=== PATIENT | female | born 1960 | race African-American/Black ===

== ENCOUNTER 2016-06-24 20:37 | Emergency (ER) | payer OTHER ==
--- NOTE | ~2016-06-24 | CR229 ---
[facility] A Service of [facility] RADIOLOGY TEXT RESULTS PATIENT: VILMA KAHN LOCATION: [facility] : 64 UNIT #: [id number] AGE: [address]: Gianni Garcia SEX: F ORDER DR: [id number] [facility] [address] [facility] [place], [place] [address] [id number] E MR#: [id number] Acc #: [id number] NAME: VILMA KAHN. : 1960 SEX: F STUDY DATE/TIME: 06/24/2016 18:56 UNIT: [facility] ROOM: STUDY DESCRIPTION: CR Shoulder Min 2 View Lt Attending Physician: Gianni Garcia Ordering Physician: Fredy Jin M.D. Primary Care Physician: Saw Martines M.D. MEDICAL IMAGING REPORT This report is preliminary unless electronic signature is present EXAM Left shoulder series dated 06/24/2016 COMPARISON None. HISTORY Pain radiating down the left arm for 2 months. Fell a year ago. FINDINGS 3 views of the left shoulder were obtained. Mild degenerative changes are noted in the left acromioclavicular joint. Glenohumeral joint is intact. No acute displaced fracture or dislocation. Surrounding soft tissues do not demonstrate any significant abnormality. Dictated by... Deepthi Welsh M.D. THIS IS AN ELECTRONICALLY VERIFIED REPORT Deepthi Welsh M.D. at 06/29/2016 8:45 AM CPR/rnr TD: 06/25/2016 06:20 JOB #: [id number] MEDICAL IMAGING REPORT Page 1 of 1 COPY
[~2016-06-24 20:37] MED LIST: ADDERALL10 MG PO; AMITRIPTYLINE H25 MG PO; DICYCLOMINE HCL10 MG PO; LEVOTHYROXINE100 MCG PO; LORTAB 7.5-5001 TAB PO; LOVASTATIN20 M1 PO; OMEPRAZOLE40 MG PO; ONDANSETRON ODT4 MG PO; SERTRALINE HCL100 MG PO; SYNTHROID PO; VICOPROFEN 200-1 TAB PO
== END 2016-06-24 21:00 | disposition home or self-care (01) ==
LOC: CED 20:37
DX: S46.912A Strain of unspecified muscle, fascia and tendon at shoulder and upper arm level, left arm, initial encounter (principal); E11.9 Type 2 diabetes mellitus without complications; Z88.5 Allergy status to narcotic agent; X58.XXXA Exposure to other specified factors, initial encounter; Y92.009 Unspecified place in unspecified non-institutional (private) residence as the place of occurrence of the external cause
CPT/HCPCS: 73030; 99283; J1885